=== PATIENT | male | born 1975 | race Caucasian/White ===

== ENCOUNTER 2020-04-27 19:44 | Emergency (ER) | payer OTHER, SELFPAY ==
[2020-04-27 19:45] VITALS: BP 122/54; PULSE 89; RESP 15; TEMP 36.2; O2SAT 96; BMI 34.4
--- NOTE | 2020-04-27 20:07 | ED.VISSUMM ---
- ER Visit Summary Date of Service: 04/27/20 Chief Complaint: Left hand laceration History of Present Illness: The patient is a 45 M who presents with a laceration to his left hand that occurred tonight. Patient was using a utility knife when he accidentally cut himself. Patient is right-hand dominant. Patient states his last tetanus was most likely within the last 5 years. Patient describes his pain is aching. Patient states it is mild. Patient denies any paresthesias or weakness. Patient denies any other injuries. Physical Examination: Vital signs are stable. Patient is afebrile. Patient is in no acute distress. Skin is warm and dry. There is a 2 cm full-thickness linear laceration over the dorsal aspect of the left hand in the webspace between the thumb and index finger. There is no active bleeding noted. There are no foreign bodies. There is moderate gapping of the wound margins. Sensation was intact to light touch in all digits. Capillary refill was less than 2 seconds in all digits. Strength is 5/5 in flexion and extension of the MP and IP joints of the left thumb as well as the MP, PIP, and DIP joints of the left index finger. Emergency Department Course and Treatment: The wound was cleaned and irrigated with copious amounts of normal saline. The wound was anesthetized with 1% plain lidocaine locally. The wound was closed with 4 simple interrupted #4-0 nylon sutures under sterile technique. Patient tolerated the procedure well. Bacitracin dressing was applied. Patient was instructed to keep the wound clean and dry. Patient was instructed to follow-up with his primary care physician in 7 days for wound recheck and suture removal. Patient understood and was agreeable with the plan. All questions were answered. Disposition: Discharge home Impression: Left hand laceration This note was generated with [employer]. dictation software. It may contain incorrect words, spelling, and punctuation that were not noted in review of the chart prior to signing ED Disposition - Plan for ED Patient: Disposition: Home or Assisted Living Diagnosis: Laceration of left hand Instructions: ED Laceration Hand Referrals: Blaise Hanna MD [Primary Care Provider] - 7 Days for suture removal
[2020-04-27] MEDS: BACITRACIN 15 GM Tube 1 APPLIC TOPICAL (21:34)
== END 2020-04-27 21:35 | disposition home or self-care (01) ==
PROVIDERS: Emergency Provider Emergency Medicine; PCP Family Medicine
DX: S61.412A Laceration without foreign body of left hand, initial encounter (principal); F32.9 Major depressive disorder, single episode, unspecified; W26.0XXA Contact with knife, initial encounter
CPT/HCPCS: 12001; 99282

== ENCOUNTER 2020-11-07 07:42 | Emergency (ER) | payer OTHER, SELFPAY ==
[2020-11-07 07:43] VITALS: BP 123/79; PULSE 62; RESP 14; TEMP 36.1; O2SAT 98; BMI 31.0
--- NOTE | 2020-11-07 07:51 | CT_ITS ---
STUDY: CT BRAIN WITHOUT CONTRAST REASON FOR EXAM: Male, 45 years old. Fall, pain RADIATION DOSAGE (If Supplied By Facility): CTDIvol = ( 38.43 ) mGy, DLP = ( 712.69 ) mGycm TECHNIQUE: Transaxial CT imaging of the brain was performed without administration of intravenous contrast material. Individualized dose optimization techniques were used for this CT. COMPARISON: No relevant priors. FINDINGS: Normal soft tissue structures. Normal calvarium. Normal size ventricles and extra-axial spaces for the patient''s age. Normal white matter tracts of the cerebral hemispheres. Normal basal ganglia and thalami. Normal brainstem. Normal cerebellum. There is no intracranial hemorrhage. There are no findings of an acute ischemic infarction. Normal visualized paranasal sinuses. CT/Brain/Head without Contrast IMPRESSION: Normal unenhanced CT scan of the brain. Electronically Signed: Zac Oliveira MD at 8:39 EDT , Service support ,
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
[2020-11-07 07:57] VITALS: O2SAT 98
--- NOTE | 2020-11-07 08:02 | RAD_ITS ---
STUDY: X-RAY - RIGHT WRIST REASON FOR EXAM: Male, 45 years old. Fall, pain TECHNIQUE: 3 view(s) of the wrist were obtained. COMPARISON: None. FINDINGS: Comminuted nondisplaced fracture of the distal radial metaphysis extending into the articular surface. Avulsion fracture of the ulnar styloid. Normal radiocarpal articulation. Normal distal radioulnar articulation. Transverse fracture of the distal aspect of the carpal navicular bone. Normal carpal articulations. Normal carpometacarpal articulation of the thumb. Normal second through fifth carpometacarpal articulations. Normal visualized metacarpal bones. Soft tissue swelling. RAD/Wrist min 3 Views IMPRESSION: There is a comminuted nondisplaced fracture of the distal radial metaphysis extending into the articular surface. Avulsion fracture of the ulnar styloid. Transverse fracture along the distal aspect of the carpal navicular bone. Soft tissue swelling. Electronically Signed: Zac Oliveira MD at 8:24 EDT , Service support ,
[2020-11-07] MEDS: HYDROcodone Bitartrate/Apap 5/325 Tablet PO (08:08)
[2020-11-07 10:11] VITALS: RESP 16
== END 2020-11-07 10:11 | disposition home or self-care (01) ==
PROVIDERS: Emergency Provider Emergency Medicine; PCP Family Medicine
DX: S52.501A Unspecified fracture of the lower end of right radius, initial encounter for closed fracture (principal); S52.201A Unspecified fracture of shaft of right ulna, initial encounter for closed fracture; F17.200 Nicotine dependence, unspecified, uncomplicated; F32.9 Major depressive disorder, single episode, unspecified; Y93.55 Activity, bike riding; W19.XXXA Unspecified fall, initial encounter; Z79.899 Other long term (current) drug therapy
CPT/HCPCS: 29125; 70450; 73110; 99283